=== PATIENT | male | born 1980 | race Two or more races ===

== ENCOUNTER 2020-06-01 21:23 | Emergency (ER) | payer OTHER ==
[~2020-06-01] VITALS: Ht 170.2 cm; Wt 117.9 kg
[2020-06-01 23:40] LABS: Basophils # (auto) 0.1 10 ^3/uL (0-0.2); Eosinophils # (auto) 0.1 10 ^3/uL (0-0.8); Eosinophils % (auto) 0.9 % (0.0-7.0); Hematocrit 50.8 % (41.0-53.0); Hemoglobin 17.3 g/dL (13.5-17.5); Lymphocytes # (auto) 2.3 10 ^3/uL (0.4-5.4); Lymphocytes % (auto) 35.3 % (10.0-50.0); Mean Corpuscular Hemoglobin 32.2 pg (28.0-32.0); Mean Corpuscular Hgb Conc. 34.1 g/dL (32.0-36.0); Mean Corpuscular Volume 94.4 fL (80.0-100.0); Monocytes # (auto) 0.5 10 ^3/uL (0-1.3); Monocytes % (auto) 8.2 % (0.0-12.0); Neutrophils # (auto) 3.5 10 ^3/uL (1.6-8.6); Neutrophils % (auto) 54.6 % (37.0-80.0); Nucleated Red Blood Cells % 0.2 %; Platelet Count (auto) 188 10^3/uL (140-450); Red Blood Cells 5.38 10^6/uL (4.5-5.90); Red Cell Distribution Width 13.2 % (11.8-14.3); White Blood Cell 6.4 10^3/uL (4.4-10.8)
[2020-06-02 00:05] LABS: Calcium 9.2 mg/dL (8.5-10.1); Potassium 4.4 mmol/L (3.5-5.1)
[2020-06-02 00:08] LABS: BUN/Creatinine Ratio 15.5
[2020-06-02 00:11] LABS: Bilirubin, Total 0.6 mg/dL (0.2-1.0); Total Protein 8.3 g/dL (6.4-8.2)
[2020-06-02] MEDS ORDERED: SODIUM CHLORIDE 0.9% 1,000 ML IV ONE ×2 (00:30→01:45)
[2020-06-02] MEDS ORDERED: InsuLIN REG 1unit/0.01ml Soln (100units/ml) IV ONE ×2 (00:30→01:45)
[2020-06-02] MEDS ORDERED: InsuLIN REG 1unit/0.01ml Soln (100units/ml) ONE (01:46)
[2020-06-02 03:09] VITALS: BP 146/74
== END 2020-06-02 03:20 | disposition home or self-care (01) ==
LOC: ER 21:32
DX: E11.65 Type 2 diabetes mellitus with hyperglycemia (principal)
CPT/HCPCS: 36415; 80053; 82010; 82962; 83036; 83880; 84484; 85025; 96361; 96374; 96376; 99284; J1815; J7030; 96375